=== PATIENT | male | born 1950 | race Caucasian/White ===

== ENCOUNTER 2018-06-23 09:02 | Emergency (ER) | payer BC ==
[~2018-06-23] VITALS: Ht 175.3 cm; Wt 76.7 kg
--- NOTE | 2018-06-23 09:34 | Emergency Room Report ---
History of Present Illness General Chief Complaint: Lower Extremity Injury Source: Patient Present Illness HPI 68-year-old male with a history of hypertriglyceridemia, gout, presents with left medial ankle swelling, and some amount of minor achy pain as well. He reports he just noticed it this morning, but he did hit his ankle against the edge of the bed last night, while he was drinking. He cannot really recollect too many details about this injury and progesterone members it didn't hurt too much last night and when he woke up today was swollen. He does admit to drinking heavily last night. I feel like he injured himself anywhere else, and specifically denies any numbness, tingling, weakness, neck pain, headache. He denies using any blood thinners. Allergies: Coded Allergies: No Known Allergies (Unverified , 06/23/18) Patient History Past Medical History: see triage record Reviewed Nursing Documentation: PMH: Agreed; PSxH: Agreed Nursing Documentation-PMH Past Medical History: No Stated History Review of Systems All Other Systems: negative except mentioned in HPI Physical Exam Vital Signs Date Time Temp Pulse Resp B/P (MAP) Pulse Ox O2 Delivery O2 Flow Rate FiO2 06/23/18 09:11 97.1 99 16 153/82 96 Room Air 97.2 Sp02 EP Interpretation: reviewed, normal General Appearance: no apparent distress, alert, non-toxic Head: normocephalic Eyes: bilateral eye normal inspection, bilateral eye PERRL, bilateral eye EOMI ENT: normal ENT inspection, hearing grossly normal, normal pharynx, no angioedema, normal voice, moist mucus membranes Neck: normal inspection, full range of motion, supple, supple/symm/no masses Respiratory: chest non-tender, lungs clear, normal breath sounds, chest symmetrical, palpation of chest normal Cardiovascular #1: normal peripheral pulses, regular rate, rhythm Cardiovascular #2: 2+ radial (R), 2+ radial (L), 2+ dorsalis pedis (R), 2+ dorsalis pedis (L) Gastrointestinal: normal inspection, non tender, soft, no mass, no guarding, no rebound Rectal: deferred Genitourinary: normal inspection, no CVA tenderness Musculoskeletal: back normal, gait/station normal, normal range of motion - Left medial malleolus with 0.25 cm abrasion, diffuse edema, mild tenderness, but patient still able to flex and extend, some limitation in inversion and eversion, non-tender, no calf tenderness, Michell's Sign negative, other - No cervical, thoracic, lumbar spine bony deformities, tenderness, step-offs Neurologic: alert, responsive, cnc programmer III-XII nml as tested, motor strength/tone normal, sensory intact, speech normal Psychiatric: judgement/insight normal, memory normal, mood/affect normal, no suicidal/homicidal ideation Skin: normal color, no rash, warm/dry, normal turgor Lymphatic: no adenopathy Procedures Splinting Splinting : Consent: Verbal Pre-Made Type: plaster Hand-Made Type: plaster Splint: maricarmen splint (posterior + ankle stirrup) Pre-Proc Neuro Vasc Exam: normal Post-Proc Neuro Vasc Exam: normal Patient Tolerated: Well Complications: None Joint Reduction Joint Reduction : Consent: Verbal Joint Reduction Site: other - ankle L, posterolateral tibiotalar dislocation , reduced Procedural Sedation: No Reduction Attempts: One Pre-Procedure NV Exam: Yes Post-Procedure NV Exam: Yes Post Joint Reduction Film: joint reduced Patient Tolerated: Well Complications: None Medical Decision Making Diagnostic Impression: Primary Impression: Fracture, ankle closed, bimalleolar Additional Impression: Dislocation, ankle ER Course All the patient has a small abrasion on the medial malleolus, there is no open laceration, and this is a closed bimalleolar fracture dislocation pattern, seen on the initial x-ray. Patient has an excellent pain tolerance, and only was given 4 mg of IM morphine as well as 1 tablet of ibuprofen and was able tolerate the dislocation reduction procedure. Was attempted and completed very easily, however traction need to be kept on while splint was placed, as it popped back out very easily and therefore a maricarmen splint was placed with manual traction held until the plaster hardened. Upon final evaluation, the ankle has stayed reduced with our splint on. He is NV intact, and his opted to take him to an orthopedist at [facility]. I did offer to have him stay here to see if I could expedite an orthopedic surgery evaluation, but they preferred to go to [facility]. He was given crutches and dc'd, with instructions to return if the ankle dislocated again. Other X-Ray Diagnostic Results Other X-Ray Diagnostic Results #1: X-Ray ordered: L ankle # of Views/Limited Vs Complete: 3 View, Complete Indication: Swelling EP Interpretation: Yes Interpretation: no soft tissue swelling - + medial aspect soft tissue swelling, +tib and fib fx, + poterolateral ankle dislocation Impression: Other - + soft tissue swelling Electronically Signed by: Matilda Cook MD Other X-Ray Diagnostic Results #2: X-Ray ordered: L ankle post-reduction # of Views/Limited Vs Complete: 3 View Indication: Swelling EP Interpretation: Yes Interpretation: no dislocation Impression: Other - +fx of tib and distal fib, previous dislocation reduced , mortise intact with appropriate alignment Electronically Signed by: Matilda Cook MD Last Vital Signs Date Time Temp Pulse Resp B/P (MAP) Pulse Ox O2 Delivery O2 Flow Rate FiO2 06/23/18 09:11 97.1 99 16 153/82 96 Room Air 97.2 Disposition: HOME, SELF-CARE Condition: Stable Scripts Ibuprofen* (MOTRIN*) 600 Mg Tablet 600 MG ORAL Q8H PRN for For Pain, #15 TAB 0 Refills Prov: MATILDA COOK M.D 06/23/18 MATILDA COOK M.D Jun 23, 2018 09:34
--- NOTE | 2018-06-23 09:59 | Diagnostic Imaging Report ---
Indication: Pain, status post trauma Technique: 3 views of the left ankle Comparison: none Findings: There is a complex fracture of the left ankle. There is a comminuted fracture of the distal fibula, which overrides by nearly 3 cm and is displaced laterally by over one bone width. The talus is displaced laterally and posteriorly, almost completely dislocated. There is a distracted fracture of the medial malleolus and probably of the posterior malleolus. Impression: Complex displaced trimalleolar fracture, as described
[2018-06-23] MEDS ORDERED: Morphine Sulfate 4mg/ml Inj (IV USE ONLY) ONE (10:08)
[2018-06-23] MEDS ORDERED: IBUPROFEN600 MG ORAL (10:27)
[2018-06-23] MEDS ORDERED: Morphine Sulfate 2mg/ml Inj(IV/IM USE ONLY) IM ONE (10:30)
--- NOTE | 2018-06-23 10:40 | Diagnostic Imaging Report ---
Indication: Post reduction, status post ankle fracture Technique: 3 views of the left ankle Comparison: One hour earlier Findings: Overlying plaster splint may obscure bony detail. Interim closed reduction of previously demonstrated trimalleolar fracture/dislocation, with markedly improved anatomic alignment, and now satisfactory relationship of the tibia to the talus and decreased displacement of the distal fibular and medial malleolar fractures. Posterior malleolar fracture is nondisplaced. Impression: Improved alignment of previously demonstrated trimalleolar fracture/dislocation, post closed reduction and splinting
[2018-06-23 10:51] VITALS: BP 152/97
[2018-06-23 11:40] VITALS: BP 152/97
== END 2018-06-23 11:54 | disposition home or self-care (01) ==
LOC: EMR 09:36
DX: S82.842A Displaced bimalleolar fracture of left lower leg, initial encounter for closed fracture (principal); W22.03XA Walked into furniture, initial encounter; Y93.89 Activity, other specified; Y92.013 Bedroom of single-family (private) house as the place of occurrence of the external cause; E78.1 Pure hyperglyceridemia; M10.9 Gout, unspecified
CPT/HCPCS: 27810; 29505; 73610; 99284; J2270; J2405